=== PATIENT | female | born 1940 | race Caucasian/White ===

== ENCOUNTER 2024-11-08 16:40 | Emergency (ER) | payer MEDICAID, MEDICARE, SELFPAY ==
[2024-11-08 16:58] VITALS: BP 145/90
[2024-11-08 17:36] LABS: % Basophils 1.1 % (0-2); % Eosinophils 2.3 % (0-6); % Immature Granulocytes 0.3 % (0-0.5); % Lymphocytes 25.2 % (20.5-51.1); % Monocytes 8.7 % (1.7-9.3); % Neutrophils 62.4 % (42.2-75.2); Absolute Basophils 0.1 10^3/uL (0-0.2); Absolute Eosinophils 0.2 10^3/uL (0-0.7); Absolute Lymphocytes 1.9 10^3/uL (1.2-3.4); Absolute Monocytes 0.7 10^3/uL (0.1-0.6); Absolute Neutrophils 4.7 10^3/uL (1.4-6.5); Hemoglobin 13.1 g/dL (12.0-16.0); Mean Corp Hgb Conc. 32.8 g/dL (33.0-37.0); Mean Corpuscular Hgb 29.3 pg (27.0-31.0); Mean Corpuscular Volume 89.5 fL (81.0-99.0); Mean Platelet Volume 9.6 fL (7.4-10.4); Nucleated Red Blood Cells % 0 %; Platelet Count 259 10^3/uL (130-400); Red Blood Cell Count 4.47 10^6/uL (4.20-5.40); Red Cell Dist. Width 12.5 % (11.5-14.5); White Blood Cell Count 7.5 10^3/uL (4.8-10.8)
[2024-11-08 17:46] LABS: ALT (SGPT) 19 U/L (0-35); AST (SGOT) 23 U/L (14-36); Albumin 4.5 g/dl (3.5-5.0); Alkaline Phosphatase 76 U/L (38-126); Blood Urea Nitrogen 17 mg/dl (7-17); Calcium 9.9 mg/dl (8.4-10.2); Carbon Dioxide 33 mmol/L (22-30); Chloride 96 mmol/L (98-107); Glucose 174 mg/dl (70-99); Potassium 4.2 mmol/L (3.5-5.1); Sodium 136 mmol/L (135-145); Total Bilirubin 0.6 mg/dl (0.2-1.3); Total Protein 7.5 g/dl (6.3-8.2); eGFR > 60.00
[2024-11-08 17:58] LABS: Troponin I < 0.012 ng/ml
--- NOTE | 2024-11-08 23:21 | ED.GENMED ---
History of Present Illness
General
Chief Complaint: Numbness
Source: patient, family (Daughter at bedside) and previous hospital records (Previous cardiac catheterization with PTCA with stent LAD 2016)
Exam Limitations: none
Time Seen by Provider: 11/08/24 22:53
Nursing documentation reviewed up to this point in time: agreed with
History of Present Illness
History of Present Illness:
This is an 84-year-old woman with history of CAD, PTCA with stent to the LAD 2016, history of hypertension, hyperlipidemia, [id number] diabetes. She presents with several week history of intermittent left anterior lower chest discomfort
that seems worse after meals, somewhat worse when she is lying in her recliner. 6 days ago while standing in the kitchen she noted some left anterior lower chest discomfort with somewhat sudden onset of left cheek discomfort as well as left hand
discomfort. Left cheek and hand discomfort resolved quickly and she has had no recurrent episodes. No other associated symptoms, she denies cough no shortness of breath, no dizziness nor lightheadedness, no nausea or vomiting, no diaphoresis, no
palpitations.
She did notify her PCP and was recommended to come to the ED for a CT. She denies headache, no neck nor back pain.
She has not taken anything for discomfort.
She has not noticed increase in chest discomfort with activity and not waking with discomfort.
She follows with a mail clerk bills in [place].
Past History
Past History
ED Past Medical History: CAD, HTN, Hypercholesterolemia, NIDDM and Hypothyroidism
ED Past Surgical History: Cardiac (PTCA with stent to the LAD 2016) and Orthopedic
Social History
Tobacco: Non-smoker
Alcohol: None
Drug: None
Personal:
Living: with family
Employment: Retired
Family History
Family History: Other (Noncontributory)
Phy Exam
Physical Exam
Physical Exam:
GENERAL: 84-year-old woman appears her stated age, bright and alert, pleasant, appears in no acute distress. Daughter is accompanying.
EYE: anicteric
NECK: Supple, nontender, no meningismus, no significant adenopathy.
ENT: oral mucosa is moist. No rhinorrhea.
CARDIAC: Regular rate and rhythm. no murmur. No palpable chest wall tenderness.
LUNGS: Clear breath sounds bilaterally, no acute respiratory distress, no wheezes/rales/rhonchi
ABDOMEN: Soft, nondistended, without focal tenderness, no r/g, no cvat. normoactive BS.
NEUROLOGICAL: Alert and oriented x3, no focal neuro deficits. Gait is steady.
SKIN: Warm and dry, normal color, skin intact. No rash.
MUSCULOSKELETAL: No C/C/E. peripheral pulses are full and equal b/l. No palpable tenderness.
PSYCH: Normal and appropriate interaction.
Course
Orders/Labs/Results
Orders:
Orders
11/08/24 17:03
Electrocardiogram (*1) Urgent
Reason for Study: Other
Other Reason for Exam: pain under ribcage
11/08/24 17:[address] [CT Head W/o Iv Contrast] Urgent
Comment:
Reason For Exam: numbness
EKG- Treatment ONCE
11/08/24 17:23
Complete Blood Count/With Diff Urgent
Comprehensive Metabolic Panel Urgent
Troponin I Urgent
11/08/24 23:21
Pantoprazole [Protonix] 40 mg PO NOW STA
Abnormal Lab Results
11/08/24
17:23
MCHC 32.8 L g/dL
(33.0-37.0)
Absolute Monos (auto) 0.7 H 10^3/uL
(0.1-0.6)
Chloride 96 L mmol/L
(98-107)
Carbon Dioxide 33 H mmol/L
(22-30)
Glucose 174 H mg/dl
(70-99)
11/08/24 17:23
11/08/24 17:23
Vital Signs
Initial and Last Documented VS:
Initial Vital Signs
Temp Pulse Resp BP Pulse Ox
98.4 F 89 18 145/90 100
11/08/24 16:58 11/08/24 16:58 11/08/24 16:58 11/08/24 16:58 11/08/24 16:58
Last Documented Vital Signs
Temp Pulse Resp BP Pulse Ox
98.4 F 89 18 145/90 100
11/08/24 16:58 11/08/24 16:58 11/08/24 16:58 11/08/24 16:58 11/08/24 16:58
MDM/Problems Addressed
Differential Diagnosis Includes:
Concern for ACS, GERD, chest wall pain. Nothing in history nor exam to suggest neurologic disorder.
CT of the head is unremarkable.
EKG is unremarkable showing normal sinus rhythm, normal axis, normal intervals, no acute ST-T wave abnormalities.
Labs are unremarkable including negative troponin.
With ongoing discomfort for several weeks, unremarkable EKG and negative troponin. ACS is unlikely.
Chest discomfort seems worse after meals and I suspect an element of GERD. No respiratory symptomatology.
Will trial a short course of daily Protonix.
At this point stable for discharge to home but recommend prompt follow-up with her PCP as well as her primary mail clerk bills.
Return precautions discussed.
Chronic conditions affecting care: DM, HTN and CAD
*Radiology
Radiology exam reviewed: radiology read reviewed
*Pulse Oximetry
Patient hypoxic: no
*EKG
Interpreted by ED Provider?: Yes
Interpretation: normal
Comparison EKG: no changes (Unchanged from previous 2018)
Rate: normal
Rhythm: sinus
[place]: normal axis
Interval: normal interval
QRS Pattern: normal QRS and poor R-wave progression
Ischemia: no ischemia
*Critical Care Note
Total Time (30-74mins, 75-104mins- exclusive of procedures): Not Applicable
ED Attending Note
-
Portions of this chart may have been created with voice recognition software.� Occasional wrong word or��sound alike� substitutions may have occurred due to the inherent limitations of voice recognition software.
Discharge Plan
Departure
Patient Disposition: Home (Routine Discharge)
Date of Disposition: 11/08/24
Time of Disposition: 23:21
Patient with high blood pressure during this ER visit?: No
Condition: Good
Discharge Problem:
Nonspecific chest pain, GERD
Instructions: Acid reflux and GERD in adults, Chest Pain NON-[facility] [employer] Specialist Follow Up
Prescriptions:
New
pantoprazole [Protonix] 40 mg tablet,delayed release (DR/EC)
40 mg PO DAILY Qty: 30 0RF
No Action
metformin 500 MG tablet
500 mg PO BID
levothyroxine 100 MCG tablet
100 mcg PO DAILY
atorvastatin 80 MG tablet
80 mg PO QPM Qty: 30 3RF
clopidogrel 75 MG tablet
75 mg PO DAILY Qty: 30 3RF
carvedilol 3.125 MG tablet
3.125 mg PO BID Qty: 60 3RF
lisinopril 10 MG tablet
10 mg PO DAILY Qty: 30 3RF
aspirin 81 MG tablet,chewable
81 mg PO DAILY 0RF
Referrals:
UNKNOWN - PT NOT,INTERVIEWE [Unknown Provider] -
Activity Restrictions/Additional Instructions:
Follow-up with your mail clerk bills as well as primary care physician this week for recheck.
Interventions
Interventions:
*Risk Screen - Suicide Last Done: 11/08/24 16:58
*General Assessment Last Done: 11/08/24 16:58
*Neglect/Abuse Screening Last Done: 11/08/24 16:58
Discharge Date and Time
Print Language: TELUGU
[2024-11-08 23:39] VITALS: BP 176/84
[2024-11-08] MEDS: PROTONIX 40 MG PO (23:39)
== END 2024-11-08 23:49 | disposition home or self-care (01) ==
LOC: EMR 16:40
PROVIDERS: Emergency Medicine; EMERGENCY PHYSICIAN Emergency Medicine; FAMILY PHYSICIAN Family Medicine
DX: R07.89 Other chest pain (principal); K21.9 Gastro-esophageal reflux disease without esophagitis; R20.0 Anesthesia of skin; I25.10 Atherosclerotic heart disease of native coronary artery without angina pectoris; I10 Essential (primary) hypertension; E11.9 Type 2 diabetes mellitus without complications; E03.9 Hypothyroidism, unspecified; E78.00 Pure hypercholesterolemia, unspecified; Z95.5 Presence of coronary angioplasty implant and graft
CPT/HCPCS: 99284; 70450; 80053; 84484; 85025; 93005